=== PATIENT | male | born 1930 | race Caucasian/White ===

== ENCOUNTER 2019-05-08 14:14 | Inpatient (IN) | payer OTHER ==
[~2019-05-08] VITALS: Ht 175.3 cm; Wt 84.4 kg
--- NOTE | ~2019-05-08 | HC ---
[facility] [place] [address] CONSULTATION Name: TOMER JACK Room #: 506-1 ADM IN M.R.#: [id number] Admission: 05/08/19 ������������������ Attend Phys: Esdras Noriega MD Discharge: ������������������ Date of : [birth year] Report #: [id number] THIS REPORT FOR: //name// CC: Esdras Noriega FAM physician/PCP DATE OF SERVICE: 05/13/2019 NEUROBEHAVIORAL STATUS EXAM ATTENDING PHYSICIAN: Esdras Noriega MD FEEDER SWITCHBOARD OPERATOR: Jomar Mejia, PhD CLINICAL PRESENTATION: The patient is an 88-year-old male admitted to the rehabilitation unit at [facility] for comprehensive inpatient rehabilitation program to improve functional mobility, activities of daily living and self-care and mental status secondary to deficits from metabolic encephalopathy. His assessment on admission includes left lower extremity cellulitis with lymphedema and dermatophytosis, hypertension and bradycardia, hyperlipidemia, obstructive sleep apnea, chronic back pain, gastroesophageal reflux disease and dementia. A complete description of his medical condition and history can be found in his medical record. Neuropsychological consultation was requested to provide assistance in the assessment of cognitive and emotional status and provide recommendations and services. Prior to this most recent admission, he was living with the assistance of his at home. The patient reports having driven and being independent with instrumental activities of daily living. He has 4 children. 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 TECHNIQUES UTILIZED: Clinical interview, review of medical records, staff consultation and behavioral observation, mini mental status exam 2 standard version, clock drawing, verbal fluency assessment (letter and category) and brief abstract reasoning test. EXAMINATION FINDINGS: The patient was alert and cooperative with the assessment. He was unable to accurately describe events surrounding his initial admission. The patient reports that he was shaking when he came in the hospital. His medical records indicate that he had a left lower extremity cellulitis with edema and electrolyte abnormalities during his acute hospital stay before his referral for inpatient rehabilitation. The patient reports symptoms to include difficulty with memory, word finding, tiredness and fatigue, anxiety and depression. He does not report difficulty [facility] [address] [place] [address] CONSULTATION Name: TOMER JACK Room #: 506-1 ADM IN M.R.#: [id number] Admission: 05/08/19 ������������������ Attend Phys: Esdras Noriega MD Discharge: ������������������ Date of : [birth year] Report #: [id number] with sleep or appetite. He is hoping to return home soon. There is no evidence of aphasia. His thoughts are logical and goal oriented. There is no thought disorder. He does not report auditory or visual hallucinations. Medical records note social group worker that his son would like him to discontinue driving. Therefore, he is not appearing safe. His performance on the mini mental status exam 2 brief version is within normal limits with a raw score of 14 of 16. He was 3/3 for initial registration, 5/5 for orientation to time, 4/[address] and 2/3 for immediate recall of 3 items after a brief time delay and distraction. Performance on the MMSE 2 standard version is within normal limits with a raw score of 26 of 30. The patient was 4/5 for serial 7's. He also had some difficulty in copying a simple geometric design. Clock drawing was satisfactory, although difficulty with visual spatial construction is noted. Performance in letter fluency is within normal limits with a raw score of 31 and a T score of 58. Deficits are noted in category fluency with a raw score 21, T score of 32. Overall, total fluency was a T score of 44. Brief abstract reasoning test was within normal limits with a score of 6/8. The patient appears to be presenting with some variability in verbal fluency. Diminished category fluency often suggest semantic memory deficits, which can be found in neurodegenerative disorder similar with Alzheimer type features. Premorbid diagnosis of dementia, likely suggests a neurodegenerative condition. The patient does acknowledge difficulty with memory, but does not recognize the severity of functional deficits and that he is hoping to return to his prior level of driving. DIAGNOSTIC IMPRESSION: 1. Major neurocognitive disorder (dementia), unspecified, with diminished insight -- likely in the mild range. 2. Depressive disorder, unspecified. RECOMMENDATIONS: Continue treatment program for depression. He also likely requires assistance in the management of medication, finances and nutrition. A followup neuropsychological evaluation could be a benefit to clarify the severity of his cognitive functioning. His son is concerned about safety driving as per nursing notes on the medical record. Increasing the degree of assistance in the home, will likely diminished need for driving and allow for an enhanced adjustment. [facility] [address] [place] [address] CONSULTATION Name: TOMER JACK Room #: 506-1 ADM IN M.R.#: [id number] Admission: 05/08/19 ������������������ Attend Phys: Esdras Noriega MD Discharge: ������������������ Date of : [birth year] Report #: [id number] Thank you very much for allowing me to provide the consultation on this patient. ��������������������������������������������� ���������������������������������������� By: ��������������������������������������������� [id number] Jomar Mejia, PhD /nt
[2019-05-08 17:00] VITALS: BP 163/86
[2019-05-08] MEDS ORDERED: AUGMENTIN 875-1 EACH PO (18:16)
[2019-05-08] MEDS ORDERED: CALCIUM MAGNES1 EAC2 PO (18:17)
[2019-05-08] MEDS ORDERED: COLACE100 MG PO (18:18)
[2019-05-08] MEDS ORDERED: DIFLUCAN200 MG PO (18:19)
[2019-05-08] MEDS ORDERED: COZAAR 25 MG TA25 M1 PO (18:19)
[2019-05-08] MEDS ORDERED: MIRALAX17 GM PO (18:20)
[2019-05-08] MEDS ORDERED: LIPITOR40 MG PO (18:21)
[2019-05-08] MEDS ORDERED: VITAMIN D-32000 UNIT PO (18:25)
[2019-05-08] MEDS ORDERED: CYMBALTA20 MG PO (18:26)
[2019-05-08] MEDS ORDERED: FLONASE 0.05%50 MCG NASAL (18:27)
[2019-05-08] MEDS ORDERED: LOPRESSOR25 PO (18:28)
[2019-05-08] MEDS ORDERED: PROTONIX40 M2 PO (18:29)
[2019-05-08] MEDS ORDERED: FIBERCON625 MG PO (18:30)
[2019-05-08] MEDS ORDERED: SENNA-DOCUSATE1 EAC1 PO (18:34)
[2019-05-08] MEDS ORDERED: BETA-VAL 0.1% O45 GM TOP (18:39)
--- NOTE | 2019-05-08 19:33 | NUR ---
ASSUMED CARE OF PT AT 1700. RECEIVED REPORT FROM NURSE AT [facility] PRIOR TO PT ARRIVAL. ADMISSION ASSESSMENT COMPLETED, OBTAINED ADMISSION VITAL SIGNS, CONSENTS SIGNED, EDUCATION COMPLETED. PT IN RECLINER WITH CALL LIGHT IN REACH. SON AT BEDSIDE. DINNER TRY PROVIDED. MED REC COMPLETED. FALL PRECAUTIONS IN PLACE AND NURSING WILL CONTINUE TO MONITOR.
[2019-05-08 21:10] VITALS: BP 179/87
--- NOTE | 2019-05-08 23:28 | NUR ---
ASSUMED CARE OF THE PT AT 1914 PM. ALERT ET ORIENTED X 3. MAKES NEEDS KNOWN. THE PT WAS SITTING IN THE RECLAINER CHAIR WHEN THIS OUTSIDE SALES EXECUTIVE CAME ON DUTY. HEART RATE REGULAR. LUNGS CLEAR BILATERALLY. RESP., EVEN, AND UNLABORED. +BS HEARD IN ALL 4 QUADRANTS. THE PT HAS A LEG WRAP ON HIS LEFT LEG. NO EDEMA NOTED AT THIS TIME. RESP., THERAPY APPLIED HIS CPAP AFTER HE WAS IN BED. CALL LIGHT WITHIN REACH.
[2019-05-09 06:10] LABS: ABSOLUTE NEUTROPHILS 4.7 thou/uL (1.4-8.2); BASOPHILS 0.9 % (0.0-2.0); EOSINOPHILS 4.7 % (0.0-3.0); HEMOGLOBIN 13.7 gm/dL (14.0-18.0); LYMPHOCYTES 14.7 % (24.0-44.0); MCH 30.4 pg (26.0-34.0); MCHC 33.5 g/dL (28.0-37.0); MCV 90.8 fL (80.0-100.0); MONOCYTES 7.9 % (1.0-8.0); PLATELET COUNT 260 thou/uL (150-400); POLYS 71.8 % (36.0-66.0); RBC 4.51 mil/uL (4.50-6.00); RDW 14.7 % (10.5-14.5); WBC 6.5 thou/uL (4.0-11.0)
[2019-05-09 06:41] LABS: CALCIUM 9.2 mg/dL (8.5-10.1); CREATININE 0.8 mg/dL (0.7-1.3); MAGNESIUM 1.8 mg/dL (1.8-2.4); POTASSIUM 3.4 mmol/L (3.5-5.1); TOTAL BILIRUBIN 0.5 mg/dL (<0.1-1.0); TOTAL PROTEIN 6.4 g/dL (6.4-8.2)
[2019-05-09 07:51] VITALS: BP 173/83
--- NOTE | 2019-05-09 08:50 | NUR ---
chart review, pt up in recliner chair, a & o self and family, place with some confusion and forgetfulness. pt lives with , has son and daughter support. " independent, walker with seat, and cane. cpap. many falls, pcp juan rosenthal, lives with .she cooks. grab bars in shower and stand up to shower. [facility]."/kerrie
--- NOTE | 2019-05-09 10:12 | NUR ---
ASSUMED CARE OF THE PT AT 0715. ALERT AND ORIENTED X4. ABLE MAKES NEEDS KNOWN. OT GAVE PT BATH AND LYMPHEDEMA OT CAME TO REWRAP HIS LEFT LEG. CONTINUE TO BE ON ORAL ABT. THE PT WAS SITTING IN THE RECLAINER AND WORKING WITH ST NOW. REASSESSMENT PER CHART. B/P 173/83 HR 51. LOSARTAN 25MG GIVEN. METOPROLOL HELD PER BELLA D/T LOW HR. LUNGS CLEAR BILATERALLY. +BS HEARD IN ALL 4 QUADRANTS. HAD SMALL SOFT BM THIS AM. HAS STRESS INCONT. WEARS BRIEFS. UP WITH ASSIST AND WALKER. THE PT HAS A LEG WRAP ON HIS LEFT LEG C/D/I NOW. NO EDEMA NOTED AT THIS TIME ON R LEG. WEARS CPAP AT NIGHT. RA DURING DAY. FALL PRECAUTION IN PLACE. CALL LIGHT WITHIN REACH. ENCOURAGED PT TO CALL WHEN GET UP. REPORTS HAD GOOD BREAKFAST THIS AM. WILL CONTINUE TO MONITOR.
[2019-05-09 13:50] VITALS: BP 125/52
[2019-05-09 19:25] VITALS: BP 157/78
--- NOTE | 2019-05-10 09:00 | NUR ---
cm visited with naren castro via phone call, son # [phone], pt # [phone] home line. education on dcp and team meeting yesterday. pt and son agree with dcp. son will assist with medication set up. son stated " if not he not supposed to drive he will listen to dr rosenthal and if can get medical records and letter for dr rosenthal to encourage dad to no longer drive that would be helpful as well. hh is fine mom is on with [facility] rt knee so dad will wnat to use the same."/matthew. referral to be sent to [facility] ( pt, ot, st , and nursing).
[2019-05-10 09:43] VITALS: BP 159/86
--- NOTE | 2019-05-10 14:00 | NUR ---
DISCHARGE PLANNING. PATIENT DISCHARGING TO HOME WITH HOME HEALTH SERVICES ONCE MEDICALLY READY. REFERRAL FAXED TO [facility] PER PATIENT REQUEST. CALL PLACED TO [facility] TO FOLLOW UP, AWAITING RESPONSE. FOLLOWING TO ASSIST WITH DISCHARGE NEEDS.
[2019-05-10 19:10] VITALS: BP 150/94
--- NOTE | 2019-05-10 21:09 | NUR ---
ASSUMED CARE OF PT AT 0715. PT IS A&OX4 AND VITAL SIGNS ARE STABLE. PT DENIES PAIN AND PARTICIPATED IN SCHEDULED THERAPIES. CONCERNS ABOUT BLOOD PRESSURE MEDICAITONS DISCUSSED WITH PROVIDER AND MEDICAITONS CHANGES MADE. FLUID RESTRICTION 1200ML. LYMPHEDEMA WRAP TO THE LLE INTACT. FALL PRECAUTIONS IN PLACE AND NURSING WILL CONTINUE TO MONITOR.
--- NOTE | 2019-05-11 01:41 | NUR ---
PT ASSESSMENT DONE AND VSS. BIPAP ON AT THIS TIME. PT UP TO BR WITH 1 ASST/GAIT/WALKER. MILDLY UNSTEADY. CYU. FALL PRECAUTIONS IN PLACE. MEDS GIVEN ORDERED AND WELL TOLERATED. SLEEPING WELL. WILL CONTINUE TO MONITOR.
[2019-05-11 08:40] VITALS: BP 156/89
--- NOTE | 2019-05-11 13:59 | H ---
[facility] [place] [address] HISTORY AND PHYSICAL Name: TOMER JACK Room #: 506-1 ADM IN M.R.#: [id number] Admission: 05/08/19 ������������������ Attend Phys: Esdras Noriega MD Discharge: ������������������ Date of : [birth year] Report #: [id number] THIS REPORT FOR: //name// CC: Esdras Noriega [facility] physician/PCP DATE OF SERVICE: 05/08/2019 HISTORY OF PRESENT ILLNESS: This is an 88-year-old male who was admitted from [facility] to [address] [place] [address] inpatient rehabilitation. He had an acute hospital stay for left lower extremity cellulitis and edema along with some electrolyte abnormalities. He required IV antibiotics initially and was followed by Infectious Disease. There was also some mention of encephalopathy. He does have underlying dementia, but it had appeared worse than his baseline. He is admitted for further therapies. Today, the patient denies headache or dizziness. He does tell me he had a headache yesterday. He denies any visual changes. He denies cough. He does report short of air with exertion. He denies chest pain. He first tells me he is constipated and then said well now; he has had several soft bowel movements. He reports eating fair. Denies any dysuria. His leg swelling is about the same. He denies any pain in the leg. PAST MEDICAL HISTORY: Hypertension, hyperlipidemia, dementia, electrolyte abnormalities and anxiety, history of prostate cancer, sleep apnea, history of UTI, GERD, chronic back pain, cataracts, laminectomy, left femur surgery and left inguinal hernia repair. HABITS: He is a nonsmoker, nondrinker, no illicit drug use. SOCIAL HISTORY: He lives in an apartment with his spouse. He reports being independent with ADLs. His provides most of the IADLs and he assists as needed. He reports he and his both drive. He is right handed. There is mention in hospital documentation that he utilized a single-point cane in the home and a walker for longer distances. He tells me he uses a four-wheel walker at all times. He does report 1 fall where he just missed sitting down on the chair and landed on his bottom. He denies any injury. ALLERGIES: No known drug allergies. CURRENT MEDICATIONS: MiraLax 17 g daily, Senna-S 2 tablets at bedtime, losartan 25 mg twice a day, Lovenox 40 mg subcutaneous at bedtime, betamethasone twice a day, topical fluticasone daily, nasal fluconazole 100 mg daily, Cymbalta 20 mg daily, vitamin D 2000 units daily, Lipitor 40 mg daily, Augmentin 875 twice a day, metoprolol 25 mg twice a day, FiberCon tablet at bedtime, Protonix 40 mg twice a day and Colace p.r.n. [address] [address] HISTORY AND PHYSICAL Name: TOMER JACK Room #: 506-1 ADM IN M.R.#: [id number] Admission: 05/08/19 ������������������ Attend Phys: Esdras Noriega MD Discharge: ������������������ Date of : [birth year] Report #: [id number] REVIEW OF SYSTEMS: Remainder of his 14-point review of systems is negative, except as listed in HPI. PHYSICAL EXAMINATION: VITAL SIGNS: 173/83, respirations 14, pulse of 51, temperature 98.3, 98% O2 sat on room air. GENERAL: He is awake, alert. He is oriented to person, place, situation. He does appear to be a poor historian, especially with recall of recent events and short-term memory. HEENT: Head is normocephalic. Eyes: EOMs are intact. Probable cataracts noted. NECK: No lymphadenopathy. CARDIAC: S1, S2. CHEST: Lungs are clear to auscultation. No crackle, no wheeze. ABDOMEN: Bowel sounds are positive. He is soft, nontender, nondistended. GENITOURINARY: No CVA tenderness. EXTREMITIES: He has functional range of motion of bilateral upper extremities. Strength is grossly 3+/5. He has no clonus at the wrist. Payroll Administrator are equal. Bilateral lower extremities, he has a left lymphedema wrap on. Neurovascular intact. Significant edema. He is able to lift left lower extremity antigravity; right lower extremity does have trace edema. Negative Homans sign. Able to lift antigravity. He is transferring at a supervision level. Contact guard assist to ambulate 150 feet with a front-wheel walker, contact guard assist to do 4 stairs. NEUROLOGIC: Cranial nerves 2-12 grossly intact. Sensation grossly intact bilaterally. No slurred speech. PSYCHIATRIC: Flat affect. LABORATORY DATA: From 05/09/2019 shows sodium 135, potassium 3.4, BUN 9, creatinine 0.8, magnesium 1.8. WBC 6.5, hemoglobin 13.7, hematocrit 41, platelets 260. ASSESSMENT: 1. Metabolic encephalopathy. 2. Left lower extremity cellulitis and lymphedema and dermatophytosis. 3. Hypertension with bradycardia. 4. Hyperlipidemia. 5. Obstructive sleep apnea. 6. Chronic back pain. 7. Gastroesophageal reflux disease. 8. Dementia. PLAN: The patient has been admitted to inpatient rehab for physical, occupational and speech therapies. He will have hospitalist services following for medical management. He will have the neuropsychology testing done. He is a [address] [place] [address] HISTORY AND PHYSICAL Name: TOMER JACK Room #: 506-1 ADM IN M.R.#: [id number] Admission: 05/08/19 ������������������ Attend Phys: Esdras Noriega MD Discharge: ������������������ Date of : [birth year] Report #: [id number] full code. Social work services following for discharge planning needs. He will have a team conference today, please see extensive orders. ��������������������������������������������� <ELECTRONICALLY SIGNED> ���������������������������������������� By: MCKAY Almendarez ��������������������������������������������� 05/11/19 1359 1110 1148 MCKAY Almendarez /nt
--- NOTE | 2019-05-11 18:33 | NUR ---
ASSUMED CARE OF PT AT 0715. PT IS A&OX4, BUT FORGETFUL. PT DENIES PAIN AND PARTICIPATED IN SCHEDULED THERAPIES. LLE WRAPPED, NURSING TO CLARIFY ORDERS FOR DRESSING CHANGES TO EXTREMITY. ORDERS FOR DEPAKOTE 250MG AT BEDTIME AFTER REPORTING POOR SLEEP AND FREQUENT CONFUSSION TO PROVIDER. FALL PRECAUTIONS IN PLACE AND NURSING WILL CONTINUE TO MONITOR.
[2019-05-11 19:35] VITALS: BP 140/56
--- NOTE | 2019-05-12 03:00 | NUR ---
PT ASSESSMENT DONE AND VSS. MEDS GIVEN ORDERED AND WELL TOLERATED. FALL PRECAUTIONS IN PLACE. SLEEPING WELL. WILL CONTINUE TO MONITOR.
[2019-05-12 09:16] VITALS: BP 123/55
[2019-05-12 19:29] VITALS: BP 152/70
--- NOTE | 2019-05-12 19:33 | NUR ---
PATIENT ALERT AND ORIENTED WITH SPOUSE AND NASREEN AT BEDSIDE THIS AFTERNOON. PATIENT SON, PAULINE, IS OT HERE TODAY. PATIENT COOPERATIVE WITH PLAN OF CARE AND ON 1200ML FLUID RESTRICTION, BUT NEEDS PROMPTING TO MAINTAIN FLUID RESTRICTION. PATIENT ANTICIPATING DISCHARGE EARLY NEXT WEEK TO HOME WITH SPOUSE.
--- NOTE | 2019-05-13 00:39 | NUR ---
ASSUMED PT CARE AT 1915. ALERT AND ORIENTED X4, FORGETFUL AT TIME. BUT THIS WELL TONIGHT. DEPAKOTE GIVEN ORDERED. ABLE TO VOICE HIS NEEDS. PT ASSESSMENT DONE AND VSS. MEDS GIVEN ORDERED AND WELL TOLERATED. LYMPHEDEMA ON LLE DRESSING C/D/I. HAS LITTLE REDNESS ON BUTTOCK. APPLIED BARRIER CREAM AND ENCOURAGED PT TO LAY OF THE SIDE. CPAP WEARS AT NIGHT. PT M.I IN ROOM DURING DAY BUT USES CALL LIGHT APPROPRIATELY. CONTINUE TO BE ON FLUID RESTRICTION. LAST NA LEVEL 135. HAD SOFT BM TODAY PER NIGHT NURSE. OFFERED SUPPORTIVE CARE AND PRAYED WITH PT. DENIES PAIN, SOB, N/V. LOOKING FORWARD TO GO HOME ON NEXT WEDNESDAY. FALL PRECAUTIONS IN PLACE. SLEEPING WELL SO FAR. WILL CONTINUE TO MONITOR.
[2019-05-13 08:00] VITALS: BP 165/90
--- NOTE | 2019-05-13 10:43 | NUR ---
ASSUMED CARE AT 0700. PATIENT IS ALERT AND ORIENTED X4. PATIENT DIAZ'S, PRODUCTION ADMINISTRATIVE ASSISTANT ARE EQUAL. LUNGS ARE CLEAR AND DEMINISHED. PATIENT REMAINS ON ABT. PATIENT TOLERATING ABT'S WITHOUT ADVERSE AFFECTS. ENCOURAGED PO FLULDS. UP IN BED FOR MEALS. PATIENT IS MOD/I IN ROOM WITH WALKER. PATIENT IS UP TO THE BATHROOM TO VOID. FALL AND SAFETY PROTOCOLS IN PLACE. DENIES ANY PAIN AT THIS TIME. WILL CONTINUE TO MONITER.
[2019-05-13 20:11] VITALS: BP 146/69
[2019-05-14 08:15] VITALS: BP 150/88
[2019-05-14 20:20] VITALS: BP 156/88
[2019-05-15 00:17] VITALS: BP 156/88
--- NOTE | 2019-05-15 01:14 | NUR ---
PATIENT PLEASANT AND COOPERATIVE. HE IS UP TO BATHROOM WITH ASSIST WITH HIS ROLLING WALKER. HE IS MORE OFF BALANCE AND CONFUSED AT NIGHT SO ASSISTANCE NEEDED FOR TOILETING BUT NOT DURING THE DAY. PATIENT DENIES PAIN. HE DID HAVE A BM ON THIS SHIFT AND EARLIER TODAY. BED ALARM ON AND BED IN LOW POSITION. DRESSING WRAP FOR LYMPHEDEMA ON AND INTACT ON LEFT LEG. BLE EDEMA 1-2 +. PEDAL PULSES PRESENT. CPAP ON PATIENT AND SET AT 4. CALL LIGHT WITHIN REACH. WILL CONTINUE TO MONITOR.
[2019-05-15 06:15] LABS: ABSOLUTE NEUTROPHILS 5.6 thou/uL (1.4-8.2); BASOPHILS 0.8 % (0.0-2.0); EOSINOPHILS 3.8 % (0.0-3.0); HEMOGLOBIN 13.2 gm/dL (14.0-18.0); LYMPHOCYTES 12.6 % (24.0-44.0); MCH 30.5 pg (26.0-34.0); MCV 92.4 fL (80.0-100.0); MONOCYTES 10.1 % (1.0-8.0); PLATELET COUNT 254 thou/uL (150-400); POLYS 72.7 % (36.0-66.0); RBC 4.34 mil/uL (4.50-6.00); WBC 7.8 thou/uL (4.0-11.0)
[2019-05-15 06:40] LABS: CALCIUM 9.2 mg/dL (8.5-10.1); CREATININE 0.9 mg/dL (0.7-1.3); MAGNESIUM 1.9 mg/dL (1.8-2.4); POTASSIUM 3.8 mmol/L (3.5-5.1)
[2019-05-15 10:14] VITALS: BP 144/74
--- NOTE | 2019-05-15 13:34 | NUR ---
ASSUMED CARE AT 0700. VSS ON RA. REPORTS SLEPT GOOD. DENIES PAIN, N/V. CONSTIPATION. PATIENT IS ALERT AND ORIENTED X4. REASSESSMENT PER CHART. HAD BM THIS AM. CONTINUE TO BE ON REGULAR LAXATIVES AND SCHEDULE ABT FOR LEFT CELLULITIS. LEFT LEG LYMPHADEMA C/D/I. WILL REWRAPPED BY OT THERAPIST TOMORROW. UP WITH WALKER TO DINNING ROOM FOR MEALS. HAS GOOD APPETITE. HIS GOALS TO CONTINUE TO THERAPY TODAY AND DC HOME TOMORROW. PATIENT IS MOD/I IN ROOM WITH WALKER. PATIENT IS UP TO THE BATHROOM TO VOID. FALL AND SAFETY PROTOCOLS IN PLACE. DENIES ANY PAIN AT THIS TIME. RESTING IN BED AT THIS MOMENT.WILL CONTINUE TO MONITOR.
[2019-05-15 20:22] VITALS: BP 167/80
[2019-05-16 00:48] VITALS: BP 159/80
--- NOTE | 2019-05-16 05:11 | NUR ---
1909-Report given by day-shift nurse and care assumed. The pt. is A/O x4, was med. compliant. He slept well tonite, with CPAP present. Last evening.LF=522/80, p=72. Re-checked after HS meds. 159/80, p=69.
[2019-05-16 08:18] VITALS: BP 134/83
--- NOTE | 2019-05-16 08:19 | NUR ---
ASSUME PT CARE AT 0700. VSS ON RA. DENIES PAIN. REPORT SLEPT GOOD. EXCITING TO GO HOME. PT UP WITH OT. TOOK SHOWER AND WALKED WITH PT THIS AM. MORNING MEDS GIVEN. LEFT LEG DRESSING WRAPPED. PT UP TO DINNING ROOM AND EATING BREAKFAST NOW. OFFERED SUPPORTIVE CARE AND ENCOURAGEMENT. PT UP WITH WALK. M.I IN ROOM. WILL BE DISCHARGE TODAY. PT HAS BRIGHT AFFECT AND IN GOOD SPIRIT.WILL CONTINUE TO MONITOR.
[2019-05-16] MEDS ORDERED: COZAAR 50 MG TA50 MG PO (10:15)
[2019-05-16] MEDS ORDERED: TYLENOL325 MG PO (10:15)
[2019-05-16] MEDS ORDERED: VITAMIN B-12500 MCG PO (10:15)
[2019-05-16 11:01] VITALS: BP 134/83
[2019-05-16] MEDS ORDERED: DEPAKOTE 250MG250 M1 PO (11:20)
--- NOTE | 2019-05-16 13:43 | NUR ---
team meeting, cont with dc today with [facility] ( PT, OT, ST nursing). no driving utile cleared by pcp, family to assist with meds and bill.
--- NOTE | 2019-05-16 13:53 | NUR ---
patient to dc today to [facility] ([facility]). DP sent them dscharge paperwork
[2019-05-17] MEDS ORDERED: COZAAR 25 MG TA25 M1 PO (12:03)
[2019-05-17] MEDS ORDERED: CALCIUM MAGNES1 EAC2 PO (12:03)
--- NOTE | 2019-05-18 11:29 | H ---
[facility] [place] [address] HISTORY AND PHYSICAL Name: TOMER JACK Room #: 506-1 DIS IN M.R.#: [id number] Admission: 05/08/19 ������������������ Attend Phys: Esdras Noriega MD Discharge: 05/16/19 ������������������ Date of : [birth year] Report #: [id number] THIS REPORT FOR: //name// CC: Esdras Noriega [facility] physician/PCP DATE OF SERVICE: 05/08/2019 POST-ADMISSION PHYSICIAN EVALUATION HISTORY OF PRESENT ILLNESS: The patient has been admitted for acute in-hospital inpatient rehabilitation. Please see the full admission note dictation. Agree with the history and physical as noted. He was seen by me earlier this morning. PHYSICAL EXAMINATION: GENERAL: He is pleasant, alert, follows basic 1-step commands, although there was a definite latency. VITAL SIGNS: Stable. HEENT: Facies appeared symmetric. CHEST: Sounded clear to auscultation. CARDIOVASCULAR: Regular rate and rhythm. ABDOMEN: Bowel sounds positive, nontender. GENITOURINARY AND RECTAL: Deferred. EXTREMITIES: He does have the dressing in place, left lower extremity with the left leg wrapped. He can wiggle his toes. No focal calf swelling. Strength is probably a grade 4- to 3+/5. DTRs are trace to 1. Transfers are supervision, gait contact guard, limited assistance, short distance front-wheeled walker ambulation. NEUROLOGIC: He does have cognitive deficits and will be seen further by speech therapy with his encephalopathy, noted to be improving. He does have a baseline dementia as well. ASSESSMENT: 1. Multifactorial encephalopathy, noted to be toxic metabolic. 2. Electrolyte imbalance. 3. Left leg cellulitis. 4. Bradycardia. 5. Hypertension. 6. Hyperlipidemia. 7. Medical complexity with generalized debilitation and weakness. 8. Prior history of dementia. 9. Chronic back pain. PLAN: From a postadmission physician evaluation perspective, there are no relevant changes since the preadmission screening. Please see the noted review in the full history and physical regarding the prior medical and functional [facility] [address] [place] [address] HISTORY AND PHYSICAL Name: TOMER JACK Room #: 506-1 [facility] IN M.R.#: [id number] Admission: 05/08/19 ������������������ Attend Phys: Esdras Noriega MD Discharge: 05/16/19 ������������������ Date of : [birth year] Report #: [id number] conditions and comorbidities and the review of the current medical and functional conditions and comorbidities. As far as risk of complications, the patient has his multiple medical problems list as noted. The initial plan of care involves the interdisciplinary acute inpatient rehabilitation program with goal of maximizing his functional independence, so he can hopefully return back to his prior living situation. Measurable functional goals would be for the patient to become modified independent with transfers, mobility and ADLs, so that he can hopefully return back to his prior living situation. Prognosis is reasonably good with estimated length of stay probably 5-10 days. Potential barriers would include his multiple medical comorbidities and decreased functional status. ��������������������������������������������� <ELECTRONICALLY SIGNED> ���������������������������������������� By: Esdras Noriega MD ��������������������������������������������� 05/18/19 1129 1150 1234 Esdras Noriega MD /[facility]
--- NOTE | 2019-05-18 11:31 | PLAN ---
[facility] [place] [address] REHAB UNIT PLAN OF CARE Name: TOMER JACK Room #: 506-1 DIS IN M.R.#: [id number] Admission: 05/08/19 ������������������ Attend Phys: Esdras Noriega MD Discharge: 05/16/19 ������������������ Date of : [birth year] Report #: [id number] THIS REPORT FOR: //name// CC: Esdras Noriega [facility] physician/PCP DATE OF SERVICE: 05/10/2019 PROGRESS NOTE/OVERALL PLAN OF CARE SUBJECTIVE: The patient was seen back in followup. No new distress. Vitals have been stable. He has been working with therapies. Transfers have been in supervision with gait up to 200 feet with front-wheeled walker, contact guard assistance. He is starting to work on stairs. Lower body dressing with supervision. Speech Therapy is following him and he does have [id number] cognitive deficits with severe memory deficits. ASSESSMENT: 1. Multifactorial encephalopathy. 2. Electrolyte imbalance. 3. Left leg cellulitis. 4. Bradycardia. 5. Hypertension. 6. Hyperlipidemia. 7. Medical complexity with generalized debilitation. 8. Chronic back pain. 9. History of dementia. PLAN: The overall plan of care is based on the preadmission screen, post-admission physician evaluation and information garnered from therapy assessments. 1. Estimated length of stay per rehab team is for discharge next Wednesday 05/16. 2. Medical prognosis is reasonably good. 3. Anticipated interventions includes the interdisciplinary acute inpatient rehabilitation program. 4. Anticipated functional outcomes would be for the patient to further improve as far as cognition, communication as well as strength endurance and gait and ADL independence. 5. Discharge destination would be back to the home setting where he lives in an apartment with his spouse. 6. Expected therapy by discipline includes PT and OT and speech 1 hour per day each five days a week throughout the duration of the acute inpatient rehabilitation stay. ��������������������������������������������� <ELECTRONICALLY SIGNED> ���������������������������������������� By: Esdras Noriega MD ��������������������������������������������� 05/18/19 [id number] Esdras Noriega MD /[facility]
== END 2019-05-16 14:14 | disposition home health service (06) | DRG 71 ==
LOC: ENTRNSPT 05-16 13:53 → EDTRNSPTSTS 05-16 13:55
PROVIDERS: Nurse Practitioner; ADMIT Physical Medicine & Rehabilitation
PROC: 5A09357 Assistance with Respiratory Ventilation, Less than 24 Consecutive Hours, Continuous Positive Airway Pressure (ICD-10-PCS; principal; 2019-05-08)
PROC: 5A09357 Assistance with Respiratory Ventilation, Less than 24 Consecutive Hours, Continuous Positive Airway Pressure (ICD-10-PCS; 2019-05-09)
DX: G93.41 Metabolic encephalopathy (principal); L03.116 Cellulitis of left lower limb; F05 Delirium due to known physiological condition; B35.9 Dermatophytosis, unspecified; I10 Essential (primary) hypertension; R00.1 Bradycardia, unspecified; E78.5 Hyperlipidemia, unspecified; G89.29 Other chronic pain; M54.9 Dorsalgia, unspecified; K21.9 Gastro-esophageal reflux disease without esophagitis; R53.81 Other malaise; I89.0 Lymphedema, not elsewhere classified; G47.33 Obstructive sleep apnea (adult) (pediatric); F01.50 Vascular dementia, unspecified severity, without behavioral disturbance, psychotic disturbance, mood disturbance, and anxiety; F32.9 Major depressive disorder, single episode, unspecified; E87.6 Hypokalemia; Z85.46 Personal history of malignant neoplasm of prostate; Z87.440 Personal history of urinary (tract) infections; Z79.899 Other long term (current) drug therapy
CPT/HCPCS: 10112